=== PATIENT | male | born 1960 | race Caucasian/White ===

== ENCOUNTER → 2024-10-09 | Outpatient (BNVA) | payer BC, SELFPAY | END | disposition home or self-care (01) | PROVIDERS: PCP Nurse Practitioner Family; Referring Provider Nurse Practitioner Family; Visit Provider Urology | DX: N40.1 Benign prostatic hyperplasia with lower urinary tract symptoms (principal); N13.8 Other obstructive and reflux uropathy; N52.9 Male erectile dysfunction, unspecified; N48.6 Induration penis plastica; F17.210 Nicotine dependence, cigarettes, uncomplicated | CPT/HCPCS: 81003; 99202; G0463 ==

== ENCOUNTER → 2024-12-03 | Outpatient (BNVA) | payer BC, SELFPAY | END | disposition home or self-care (01) | PROVIDERS: PCP Nurse Practitioner Family; Referring Provider Nurse Practitioner Family; Visit Provider Student in an Organized Health Care Education/Training Program | DX: N48.6 Induration penis plastica (principal); N52.9 Male erectile dysfunction, unspecified; F17.210 Nicotine dependence, cigarettes, uncomplicated | CPT/HCPCS: 99212; G0463 ==

== ENCOUNTER → 2025-01-08 | Outpatient (BNVA) | payer BC, SELFPAY | END | disposition home or self-care (01) | PROVIDERS: PCP Nurse Practitioner Family; Referring Provider Nurse Practitioner Family; Visit Provider Urology | DX: N40.1 Benign prostatic hyperplasia with lower urinary tract symptoms (principal); R39.12 Poor urinary stream; Z87.891 Personal history of nicotine dependence | CPT/HCPCS: 51741; 51798 ==

== ENCOUNTER → 2025-04-08 | Outpatient (BNVA) | payer BC, SELFPAY | END | disposition home or self-care (01) | PROVIDERS: PCP Nurse Practitioner Family; Referring Provider Nurse Practitioner Family; Visit Provider Student in an Organized Health Care Education/Training Program | DX: Z48.816 Encounter for surgical aftercare following surgery on the genitourinary system (principal); N50.89 Other specified disorders of the male genital organs | CPT/HCPCS: 99212; G0463 ==